=== PATIENT | female | born 1985 | race Caucasian/White ===

== ENCOUNTER 2019-08-06 15:05 | Inpatient (IN) | payer BC ==
[2019-08-06] MEDS ORDERED: Lactated Ringers 1000 ML Bag* 1,000 ML IV ONE (15:38)
[2019-08-06] MEDS ORDERED: Buffered Lidocaine 1% SYRIN* 1 ML/SYRINGE INTRADERM ONE (15:38)
[2019-08-06] MEDS ORDERED: Lactated Ringers 1000 ML Bag* 1,000 ML IV SCH (16:00)
[2019-08-06 16:40] LABS: Urine Benzodiazepine Screen None Detected (None Detect); Urine Opiates Screen None Detected (None Detect)
--- NOTE | 2019-08-06 16:54 | HP ---
General Information - Reason for Visit Pt was scheduled for cervical ripening tonight for postdates . However experienced SROM at around 1030 this morning to clear, pink-tinged fluid. - General Information Maternal Age: 34 Grav: 1 Para: 0 SAB: 0 IEA: 0 Estimated Due Date: 07/29/19 Determined By: LMP Gestational Age in Weeks/Days: 41 05/16 Maternal Blood Type and Rh: A Positive - Results this Serology/RPR Result: Non-Reactive Rubella Result: Non-Immune HBsAg Result: Negative HIV Result: Negative GBS Culture Result: Negative Past Medical History Delivery History: See Records - primigravida Pertinent Past Medical History: See Records - Pt born with hip dysplasia Pertinent Past Surgical History: None Pertinent Family History: Non-Contributory - Antepartal Records Antepartal Records: Reviewed, Uncomplicated - age 34 at TIN, rubella equivocal x2 Review of Systems Constitutional: Comfortable CV Complaint: No Respiratory: Shortness of Breath: No Gastrointestinal: No Nausea/Vomiting, Normal Bowel Movement Genitourinary: Leaking Fluid, No Dysuria, No Bleeding Musculoskeletal: No Complaint, No Epigastric Pain Neurological: No Headache, No Visual Changes Movement: Normal Exam Allergies/Adverse Reactions: Allergies No Known Allergies Allergy (Verified 08/06/19 15:23) T-97.8, P-69, R-18, BP- 136/73, O2-99% Lab Values - Entire Visit: Laboratory Tests 08/06/19 08/06/19 15:20 15:32 Vag Amniotic Fld Detect Positive Urine Opiates Screen None detected Ur Barbiturates Screen None detected Ur Phencyclidine Scrn None detected Ur Amphetamines Screen None detected U Benzodiazepines Scrn None detected Urine Cocaine Screen None detected U Cannabinoids Screen None detected - Measurements Height: 5 ft 7.5 in Weight: 86.183 kg Body Mass Index (BMI): 29.3 Pre- Weight: 77.564 kg - Exam Breast: Breast Exam Deferred CVA: No CVA Tenderness Extremities: No Edema Heart: Normal Rhythm/Heart Sounds HEENT: No Significant Findings Lungs: Clear Bilaterally Rectal: Rectal Exam Deferred Reflexes: DTR 2+ Thyroid: No Thyromegaly - Abdominal Exam Abdomen Exam: Non-Tender, Fundal Height Consistent with Dates - Ultrasound/Biophysical Profile Ultrasound Status: Not Done Targeted Exam Findings See L&D Outpatient Visit Provider Note for Findings: N/A Estimated Weight: 8# Cervical Exam: 3cm Effacement: 70% Station: -1 Presenting Part: Vertex Membrane Status: SROM Amniotic Fluid Evaluation: Positive ROM Plus, Clear Bleeding/Discharge: None EFM Findings - External Monitor Findings Baseline Heart Rate: 0 - baseline indeterminate External Monitor Findings: Accelerations Present, No Pattern of Variable or Late Decelerations - believe baseline to be 120-130 with many prolonged accels, but baseline indeterminate. Tracing shows a lot of movement. Contractions: Regular, Mild, < 45 Seconds, 45-90 Seconds Contraction Frequency: 2-3 Assessment/Plan - Assessment 34 year old at 41 1/7 weeks gestation with prelabor rupture of membranes who was scheduled for cervical ripening tonight. FHR tracing with indeterminate baseline, very active FM. - Obstetrical Risk Factors Obstetrical Risk Factors: Post-Dates - Plan Plan: Admit - Anticipate Vaginal Delivery Plan Comment: Discussed options for proceeding given SROM. Pt prefers expectant management, but consents to cervical exam, attempt to fully rupture membranes. Exam completed and attempted to fully rupture membranes, no further fluid noted. Will reevaluate in a couple hours or as needed. Will continue to monitor until able to determine FHR baseline. - Date/Time of Admission Date of Admission: 08/06/19 Time of Admission: 15:20
[2019-08-06 17:30] LABS: Urine Appearance Clear; Urine Bilirubin Negative (Negative); Urine Blood Negative (Negative); Urine Color Yellow; Urine Glucose Negative (Negative); Urine Ketones Negative (Negative); Urine Nitrite Negative (Negative); Urine Protein Negative (Negative); Urine Specific Gravity 1.009 (1.010-1.030); Urine Urobilinogen Negative (Negative)
--- NOTE | 2019-08-06 19:42 | PN ---
Progress Note - Progress Note Date of Service: 08/06/19 SOAP: Subjective: Pt reports ctx feeling stronger, more uncomfortable. Still able to talk through them. Still reports strong preference for expectant management. Objective: Cervical exam deferred FHR: Baseline 125/ moderate variability/ + accels/ no decels UCs: 2-4 BP: 140/82 Assessment: 34 year old at 41 1/7 weeks gestation, with ROM 9 hours to clear fluid, mildly elevated BPs. No evidence of acidemia or chorioamnionitis. Plan: Continue expectant management for now, reevaluate in a couple hours.
--- NOTE | 2019-08-06 21:25 | PN ---
Progress Note - Progress Note Date of Service: 08/06/19 SOAP: Subjective: Pt relaxed and comfortable in between ctx, feels the ctx are becoming more painful. Still appears fairly comfortable. Objective: FHR: 125 per doppler UCs: 2-4 minutes BP: 128/77 Temp: 98.1 Assessment: No evidence of chorioamnionitis or acidemia. Does not yet appear to be in active labor. Plan: Discussed options for plan of care including augmentation vs expectant management. Pt with strong preference for expectant management. If not obviously in active labor in the next couple hours will recommend cervical exam and augmentation if no change.
[2019-08-06 21:31] LABS: ABS Basophils 0.1 10^3/ul (0-0.2); ABS Eosinophils 0.1 10^3/ul (0-0.6); ABS Lymphocytes 2.2 10^3/ul (1.0-4.8); ABS Monocytes 0.9 10^3/ul (0-0.8); ABS Neutrophils 11.9 10^3/ul (1.5-7.7); Eosinophil % 0.6 %; Hematocrit 35 % (35-47); Hemoglobin 11.6 g/dL (12.0-16.0); Lymphocyte % 14.3 %; Mean Corpuscular HGB Conc 34 g/dL (31-36); Mean Corpuscular Hemoglobin 31 pg (27-31); Mean Corpuscular Volume 91 fL (80-97); Mean Platelet Volume 11.2 fL (7.4-10.4); Nucleated Red Blood Cells % 0.1; Platelet Count 126 10^3/uL (150-450); Red Cell Distribution Width 13 % (10-15); White Blood Count 15.1 10^3/uL (3.5-10.8)
[2019-08-06 21:45] LABS: Albumin 3.2 g/dL (3.2-5.2); Albumin/Globulin Ratio 1.1 (1-3); Calcium 8.7 mg/dL (8.6-10.3); EGFR African American 94.1 (>60); EGFR Non-African American 77.8 (>60); Globulin 2.8 g/dL (2-4); Potassium 3.9 mmol/L (3.5-5.0); Total Bilirubin 0.3 mg/dL (0.2-1.0); Uric Acid 4.9 mg/dL (2.3-6.6)
--- NOTE | 2019-08-07 00:39 | PN ---
Progress Note - Progress Note Date of Service: 08/07/19 SOAP: Subjective: Pt reports feeling ctx every 2-3 minutes, able to talk through them. Objective: Cervix: 3cm/ 80%/ -1/ vtx FHR: [id number]/ moderate variability/ + accels/ no decels UCs 2-3 minutes Fluid clear BP: 137/77 Labs WNL Assessment: Pt has made some cervical change but is not in active labor. No evidence of acidemia. No evidence of preeclampsia. Plan: Recommend augmentation of labor with Pitocin. Discussed risks, benefits. Pt in agreement with plan.
[2019-08-07] MEDS ORDERED: Oxytocin in LR* 20 UNITS/1,000 ML BAG IVPB SCH ×2 (01:00→19:00)
--- NOTE | 2019-08-07 02:51 | PN ---
Progress Note - Progress Note Date of Service: 08/07/19 SOAP: Subjective: Pt reports ctx about the same, dozing between them. Objective: Pitocin started at 2 mu/min FHR: Baseline 120/ moderate variability/ + accels/ no decels UCs: 3-4 minutes Cervical exam deferred Assessment: Pt still does not appear to be in active labor. No evidence of acidemia or chorioamnionitis. Plan: Will start Pitocin at 2 mu/min. Continuous EFM while on Pitocin. Titrate to effect.
--- NOTE | 2019-08-07 07:04 | PN ---
Progress Note - Progress Note Date of Service: 08/07/19 SOAP: Subjective: Pt experiencing intense ctx. Kneeling on bed and leaning on back of bed. Objective: FHR: Baseline 120/ moderate variability/ + accels/ no decels UCs: 2-3 minutes BP: 137/77 Temp: 97.6 Assessment: Pt appears to be in active labor. Coping well with good support from . No evidence of acidemia or chorioamnionitis. Plan: Continue Pitocin augmentation, decrease rate as able and potentially do trial of discontinuation of Pitocin if active labor pattern persists.
--- NOTE | 2019-08-07 08:37 | PN ---
Progress Note - Progress Note Date of Service: 08/07/19 Note: S: Assuming care of Consuelo Schmitz a 34 year-old at 41-2/7 s/p SROM to clear fluid 08/06/2019 at 1045am. GBS negative. Per pt preference expectant management x 16.5 hours then agreed to IV pitocin augmentation. Once active UC pattern achieved IV pitocin discontinued at 0730 after 4 hours, 15 min per strong pateint preference to see if UCs will continue on their own. Reports UCs longer and stronger. Feeling very shivery and shaky. Consistent dark brown bloody show since first SVE yesterday afternoon. Has strong bedside support from FOB. Borderline BPs noted in presence of normal labs. Denies YU. No visual changes. No RUQ pain O: BP 146/77 HR 83 T 98.3 FHT 120bpm. Moderate variability. +Accels. No decels. With discontinuation of IV pitocin currently performing intermittent doptones q 30 min through a contraction UCs q 2-3, moderate to palpation VE 4cm/100%/vtx -1 A: IUP at 41-2/7 in early, active labor No evidence of metabolic acidemia Prolonged rupture of membranes > 18 hours P: Bedside support and encouraged psychoprophylaxis. Plan to re-check in 2 hours and if no significant cervical change recommend resumption of IV Pitocin augmentation. Pt and FOB agree.
--- NOTE | 2019-08-07 11:00 | PN ---
Progress Note - Progress Note Date of Service: 08/07/19 Note: S: Pt got some good relief in the tub. Now out of the tub and reports UCs feeling stronger, longer and more intense O: VSS, afebrile FHT 120bpm. Moderate variability. +Accels. No decels UCs q 2-4 VE 6cm/100%/vtx -1 A: IUP at 41-2/7 in active labor No evidence of metabolic acidemia Prolonged rupture of membranes >24 hours P: Continue expectant management for now
--- NOTE | 2019-08-07 12:33 | PN ---
Progress Note - Progress Note Date of Service: 08/07/19 Note: S: Pt requesting VE as she would like to discuss pain relief options O: VSS, afebrile FHT 120bpm. No decels with UCs by intermittent doptones UCs q 2-4 VE 7cm/100%/vtx -1 A: IUP at 41-2/7 in active labor No evidence of metabolic acidemia Prolonged ROM > 24 hours P: Discussed IV pain relief with IV Fentanyl vs. epidural analgesia. All ?s answered. At this time elects to try the tub again.
--- NOTE | 2019-08-07 15:16 | PN ---
Progress Note - Progress Note Date of Service: 08/07/19 Note: S: Pt feeling increased rectal pressure with peak of UCs. Requesting VE O: BP 122/64 HR 97 T 98.6 FHT 120bpm. No decels through UC by intermittent doptones UCs q 2-3 VE 8-9cm with thick anterior lip/100%/vtx 0 to +1 A: IUP at 41-2/7 in active labor No evidence of metabolic acidemia Proloned ROM >24 hours P: Pt will try hand and knees to aid with cervical change. Reassurances given. Anticipate trial of pushing soon
[2019-08-07] MEDS ORDERED: Acetaminophen TAB* 325 MG PO PRN (18:59)
[2019-08-07] MEDS ORDERED: Lactated Ringers 1000 ML Bag* 1,000 ML IV SCH (19:00)
[2019-08-07] MEDS ORDERED: Misoprostol TAB* 200 MCG PR ONE (19:01)
--- NOTE | 2019-08-07 19:10 | PROCNOTE ---
[facility] OB: Delivery Note - Delivery A Date of : 08/07/19 Time of : 18:21 [place] Sex: Male - "Ray" Score 1 Minute: 6 Score 5 Minutes: 8 Gestational Age in Weeks and Days at Delivery: 41 Weeks and 2 Days Delivery Method: Spontaneous Vaginal Labor: Induced - augmented with IV pitocin following spontaneous rupture of membranes Did Patient attempt ?: N/A, No Previous Amniotic Fluid: Clear Estimated Blood Loss: 450 Anesthesia/Analgesia: None Delivered By: Amisha Hollis - Nursery Level of Nursery: Regular/Bedside - Perineum Perineal Injury: Abrasion Only - Not Repaired - Bilateral sublabial abrasions. Hemostatic and not repaired, 2nd Degree - repaired in the usual fashion under local infiltration 1% lidocaine using 3-0 Rapide. Anatomy restored and good hemostasis achieved. Pt tolerated well. Perineal Repair: By Delivering Practioner - Events Delivery Events of Note: Pitocin During Labor, ROM > 24 Hours - Additional Delivery Notes Additional Delivery Notes: Patient admitted following spontaneous rupture of membranes to clear fluid. Following 16.5 hours of expectant management agreed to trial of IV pitocin augmentation. Once adequate uterine contraction pattern achieved IV pitocin discontinued at patient request and she continued to labor on her own with expected progression to complete. Length of active phase 7 hours, 55 min. Pushed x 2 hours. liveborn male. Slow, controlled delivery of head. OA to GOLDIE. Loose nuchal cord x 1. Shoulders followed easily. Infant somersaulted through cord. Terminal meconium noted with delivery. initially stunned. Responded well to delayed cord clamping, tactile stimulation and bulb suction. Cord clamped x 2 and cut by FOB. evaluated at warmer by Special Care Nurse and returned to maternal abdomen. Apgars 6/8. Spontaneous delivery intact placenta. Membranes complete. Velamentous cord insertion noted. Fundus slow to firm to massage with IV pitocin infusing. 800mcg Cytotec given per rectum x 1. Fundus firm to massage and remained firm. EBL 450mL. At time of note mother and in stable condition. Planning to breast feed.
[2019-08-07] MEDS: Witch Hazel PAD* JAR TOPICAL PRN (20:28)
[2019-08-07] MEDS: Dibucaine 1% 28.35 GM TUBE PR PRN (20:29)
[2019-08-07] MEDS: Ibuprofen TAB* 600 MG PO SCH (20:29)
[2019-08-08 05:56] LABS: Hematocrit 31 % (35-47); Hemoglobin 10.4 g/dL (12.0-16.0); Mean Corpuscular HGB Conc 34 g/dL (31-36); Mean Corpuscular Hemoglobin 31 pg (27-31); Mean Corpuscular Volume 91 fL (80-97); Mean Platelet Volume 11.3 fL (7.4-10.4); Platelet Count 136 10^3/uL (150-450); Red Blood Count 3.39 10^6 /uL (3.70-4.87); Red Cell Distribution Width 14 % (10-15); White Blood Count 24.5 10^3/uL (3.5-10.8)
[2019-08-08] MEDS: Ibuprofen TAB* 600 MG PO SCH ×4 (06:46→20:07)
[2019-08-08] MEDS: Docusate CAP* 100 MG PO SCH ×4 (06:47→20:07)
[2019-08-08 07:14] LABS: ABS Lymphocytes 2.9 10^3/ul (1.0-4.8); ABS Monocytes 1.2 10^3/ul (0-0.8); ABS Neutrophils 20.3 10^3/ul (1.5-7.7); Eosinophil % 0.2 %; Lymphocyte % 11.8 %
[2019-08-08] MEDS ORDERED: Ferrous Gluconate TAB* 324 MG TAB PO SCH (09:00)
[2019-08-08] MEDS ORDERED: Measles, Mumps,Rubella VACC* 0.5 ML/VIAL SUBCUT ONE (09:00)
[2019-08-08] MEDS: Dibucaine 1% 28.35 GM TUBE PR PRN (20:08)
[2019-08-08] MEDS: Witch Hazel PAD* JAR TOPICAL PRN (20:08)
[2019-08-09] MEDS: Ibuprofen TAB* 600 MG PO SCH ×3 (02:04→18:13)
[2019-08-09 09:21] VITALS: BP 124/67
[2019-08-09] MEDS: Docusate CAP* 100 MG PO SCH ×2 (11:13→16:32)
== END 2019-08-09 19:13 | disposition home or self-care (01) | DRG 560 ==
LOC: MCHOBOUT 15:05 → MCHOB 16:00
PROVIDERS: ADMIT Midwife; ATTEND Midwife
PROC: 10E0XZZ Delivery of Products of Conception, External Approach (ICD-10-PCS; principal; 2019-08-07)
PROC: 10907ZC Drainage of Amniotic Fluid, Therapeutic from Products of Conception, Via Natural or Artificial Opening (ICD-10-PCS; 2019-08-07)
PROC: 0KQM0ZZ Repair Perineum Muscle, Open Approach (ICD-10-PCS; 2019-08-07)
DX: O48.0 Post-term pregnancy (principal); Z37.0 Single live birth; Z3A.41 41 weeks gestation of pregnancy; O70.1 Second degree perineal laceration during delivery; O69.81X0 Labor and delivery complicated by cord around neck, without compression, not applicable or unspecified; O77.0 Labor and delivery complicated by meconium in amniotic fluid
CPT/HCPCS: 36415; 80053; 80307; 81003; 84112; 84550; 85025; 86850; 86900; 86901; 90707; A9270-GY; G0480